=== PATIENT | female | born 1990 | race African-American/Black ===

== ENCOUNTER 2021-07-31 23:32 | Emergency (ER) | payer SELFPAY ==
[~2021-07-31] VITALS: Ht 177.8 cm; Wt 81.8 kg
[2021-08-01] MEDS ORDERED: MAGNESIUM/ALUMINUM HYDROXIDE/SIMETHICONE 30ML UDC PO STA (00:01)
[2021-08-01] MEDS ORDERED: VISCOUS LIDOCAINE 2% 15 ML UDC PO STA (00:01)
[2021-08-01] MEDS ORDERED: FAMOTIDINE 20MG TABLET PO ONE (00:15)
[2021-08-01 01:25] VITALS: BP 136/86
[2021-08-01] MEDS ORDERED: FAMO-135 MT (01:25)
== END 2021-08-01 01:44 | disposition home or self-care (01) ==
LOC: ER 23:32
DX: K21.9 Gastro-esophageal reflux disease without esophagitis (principal); Z20.822 Contact with and (suspected) exposure to COVID-19
CPT/HCPCS: 71045; 87426; 93005; 99285